=== PATIENT | male | born 1965 ===

== ENCOUNTER → 2023-08-10 06:35 | Outpatient (REF) | payer BC, SELFPAY | LOC: MRI 3T 06:35 | PROVIDERS: ATTENDING PHYSICIAN Psychiatry & Neurology Neurology; FAMILY PHYSICIAN Family Medicine | DX: M54.16 Radiculopathy, lumbar region (principal) | CPT/HCPCS: 72148 ==

== ENCOUNTER → 2024-05-17 06:43 | Outpatient (REF) | payer MEDICARE, BC, SELFPAY | LOC: RAD 06:43 | PROVIDERS: ATTENDING PHYSICIAN Internal Medicine Endocrinology, Diabetes & Metabolism; FAMILY PHYSICIAN Family Medicine | DX: E05.90 Thyrotoxicosis, unspecified without thyrotoxic crisis or storm (principal) | CPT/HCPCS: 76536 ==

== ENCOUNTER 2024-10-08 06:11 | Day surgery (SDC) | payer MEDICARE, BC, SELFPAY ==
[2024-10-08 12:35] VITALS: BP 141/84; BMI 31.0
[2024-10-08 12:46] VITALS: BMI 31.0
[2024-10-08 15:11] VITALS: BP 115/80
[2024-10-08 15:15] VITALS: BP 123/84
[2024-10-08 15:30] VITALS: BP 125/83
== END 2024-10-08 15:47 | disposition home or self-care (01) ==
LOC: SDS 06:11
PROVIDERS: ATTENDING PHYSICIAN Internal Medicine Gastroenterology
DX: D12.6 Benign neoplasm of colon, unspecified (principal); K64.0 First degree hemorrhoids; K57.30 Diverticulosis of large intestine without perforation or abscess without bleeding; D12.3 Benign neoplasm of transverse colon
CPT/HCPCS: 45390; 88305